=== PATIENT | female | born 1945 | race Caucasian/White ===

== ENCOUNTER → 2016-12-13 | Outpatient (CLI) | payer OTHER | LOC: BMCIMAGING 14:06 | PROVIDERS: ATTEND Physician Assistant | DX: Z12.31 Encounter for screening mammogram for malignant neoplasm of breast (principal) | CPT/HCPCS: G0202 ==

== ENCOUNTER 2017-05-05 08:26 | Emergency (ER) | payer OTHER ==
[2017-05-05] MEDS ORDERED: NS 500 ML IV ONE (09:01)
--- NOTE | 2017-05-05 09:05 | EDPHY ---
HPI/HX/ROS/PE/MDM Narrative: CHIEF COMPLAINT: Vaginal bleeding, nausea HISTORY OF PRESENT ILLNESS: The patient is a 71 y/o female complaining of vaginal bleeding, nausea, and lower back pain. Yesterday she went for a long hike and felt mildly nauseated by the end of the hike. She then noticed lower back aching that continued through the night. This morning while at the gym around 07:30, 1.5 hours ago, she stood up in the bathroom and saw "brown stuff started coming out of my vagina then gush of red blood" prompting her to come to the ED for evaluation. She says, "it feels like I'm getting my period and that's not right." She's continued to have back aching, nausea, and now belching , but no vomiting. She also feels mildly lightheaded. She denies trauma, recent sex, frequent or recent UTIs, cancer history, or any changes from her normal activities. Two or three years ago she had "problems with my uterus" including spotting and cramping. She had a work up with her OBGYN that included negative biopsies and imaging per patient. She was then treated for low estrogen and started on vaginal hormones. Her symptoms today felt much different than this prior experience. No fever, chills, chest pain, shortness of breath, palpitations, vomiting, diarrhea, urinary complaints, headache, syncope. REVIEW OF SYSTEMS: Aside from elements discussed in the HPI, a comprehensive 10-point review of systems was reviewed and is negative. PAST MEDICAL HISTORY: Menopause at age 50. SOCIAL HISTORY: . Very active lifestyle. PCP: RIMA Iglesias VITAL SIGNS: Reviewed by me GENERAL: Well-developed, well-nourished, resting comfortably in no respiratory distress. HEENT: Atraumatic. Eyes: No icterus, no injection. Mouth: moist mucous membranes. No erythema or lesions. Neck: supple with no adenopathy. LUNGS: Clear to auscultation bilaterally, no wheezes, rhonchi or rales. CARDIAC: Regular rate and rhythm, no rubs, murmurs or gallops. ABDOMEN: Soft, mild suprapubic tenderness, nondistended, bowel sounds normal. : Old blood in vaginal vault, bimanual exam reveals mild right adnexal tenderness, no enlarged uterus. BACK: Mild right flank tenderness. EXTREMITIES: No trauma. No edema. Range of motion is normal throughout. NEURO: Alert and oriented, grossly nonfocal. SKIN: Warm and dry, no rash. PSYCHIATRIC: Normal mentation, no agitation. Portions of this note were transcribed by a medical assistant supervisor. I personally performed a history, physical exam, medical decision making, and confirmed accuracy of information the transcribed note. ED Course: This is a normally healthy, postmenopausal 71 y/o female who presents with a 1- day history of nausea and back aching with vaginal bleeding onset this morning. She has a prior history of spotting 2-3 years ago that prompted a [employer] evaluation that was largely negative and she was started on hormone therapy. On exam today, she has mild suprapubic tenderness, mild right flank tenderness, and pelvic exam reveals old blood in vaginal vault and mild right adnexal tenderness. Plan for IV, labs, UA, EKG, pelvic US. 500mL IV NS ordered. The 12 lead EKG was interpreted by myself. Sinus rhythm rate 64. See hard copy and/or "tracemaster" electronic copy for interpretation. Labs largely unremarkable. Normal hemoglobin and hematocrit, slightly low sodium, negative troponin. US shows uterine atrophy, nonvisualization of ovaries, and left-sided pelvic venous congestion, similar to 05/25/2014. 1126: Consulted with RIMA Renae from [facility]. They will see patient as an outpatient in their office. Reassessed patient and discussed work up. Abdomen remains benign. She is comfortable with plan to follow up as an outpatient. Return precautions discussed. MDM: Differential diagnoses for the patient's symptom complex was considered including but not limited to vaginal trauma, uterine carcinoma, uterine fibroid , endometrial carcinoma, hormone withdrawal. - Data Points Imaging Results: Impression: 1. Uterine atrophy with a normal endometrium. 2. Nonvisualization of the ovaries, despite transabdominal and endovaginal protocols. 3. Left-sided pelvic venous congestion, similar to 05/25/2014. Findings were discussed with Cornelia Muhammad MD at 11:13, on 05/05/2017. Dictated By: Ulises Wood MD Imaging: Discussed imaging studies w/ catalyst operator chief Radiologist Laboratory Results: Laboratory Results 05/05/17 08:52 05/05/17 08:52 Medications Given: Discontinued Medications Sodium Chloride (Ns) 500 mls @ 1,000 mls/hr IV EDNOW ONE PRN Reason: Protocol Stop: 05/05/17 09:30 Last Admin: 05/05/17 09:19 Dose: 500 mls Microbiology Results: MICROBIOLOGY 05/05/17 09:15 Urine,Clean Catch Urine Culture - Final Four [place] Types General Time Seen by Provider: 05/05/17 08:42 Initial Vital Signs: Initial Vital Signs Temperature (C) 36.8 C 05/05/17 08:30 Heart Rate 91 05/05/17 08:30 Respiratory Rate 18 05/05/17 08:30 Blood Pressure 134/90 H 05/05/17 08:30 O2 Sat (%) 98 05/05/17 08:30 O2 Delivery Mode Room Air Allergies/Adverse Reactions: "STEROIDS" Allergy (Severe, Uncoded 12/21/08 11:35) Home Medications: Medication Instructions Recorded NK [No Known Home Meds] 05/05/17 Departure - Departure Disposition: Home, Routine, Self-Care Clinical Impression: Dysfunctional uterine bleeding Condition: Good Instructions: Dysfunctional Uterine Bleeding (ED) Additional Instructions: Follow up with OBGYN this week. I recommend calling today to schedule this appointment. Return to the ED for severe pain, weakness, lightheadedness, fainting, if you start passing blood clots, or other worsening of condition. Referrals: Amanda Iglesias PA [Primary Care Provider] - As per Instructions Report Scribed for: Cornelia Muhammad Report Scribed by: Zayra Vela Date of Report: 05/05/17 Time of Report: 09:05
[2017-05-05 09:07] LABS: PLATELET COUNT 261 10^3/uL (150-400)
--- NOTE | 2017-05-05 09:29 | CPEKG ---
Heart Rate: 64 RR Interval: 938 P-R Interval: 136 QRSD Interval: 78 QT Interval: 416 QTC Interval: 430 P [place]: 71 QRS [place]: 21 T Wave [place]: 60 EKG Severity - NORMAL ECG - EKG Impression: SINUS RHYTHM Electronically Signed By: Cornelia Muhammad 05-May-2017 17:19:49
[2017-05-05 11:39] VITALS: BP 134/76; PULSE 72; RESP 14; TEMP 97.7; O2SAT 97
== END 2017-05-05 12:25 | disposition home or self-care (01) ==
DX: N93.8 Other specified abnormal uterine and vaginal bleeding (principal); E86.9 Volume depletion, unspecified

== ENCOUNTER → 2017-12-22 | Outpatient (CLI) | payer OTHER | LOC: BMCIMAGING 13:25 | PROVIDERS: ATTEND Physician Assistant | DX: Z12.31 Encounter for screening mammogram for malignant neoplasm of breast (principal) ==